=== PATIENT | male | born 1940 | race Caucasian/White ===

== ENCOUNTER → 2017-05-26 | Outpatient (CLI) | payer MEDICARE, OTHER ==
[~2017-05-26] MED LIST: ALLO100T PO; AMIO200T PO; CALC0.25 PO; CARV6.25 PO; CLON0.1T PO; COLC1CAP3 PO; IPRASOL INH; MECL-62 PO; MILKSUS PO; MONT10TA4 PO; NITR0.4S SL; NORC5TAB PO; PRAV20TA PO; SEVEL800 PO; SODI200S PO; SPIRCAP INH; [UNRECOGNIZED DRUG - CODE] PO
[2017-05-26 12:24] LABS: HEMATOCRIT 35.6 % (39.0-51.0); HEMOGLOBIN 11.4 GM/DL (13.0-17.0); MEAN CELL VOLUME 93.5 FL (80.0-100.0); MEAN CORPUSCULAR HGB CONC 32.1 % (32.0-36.0); MEAN PLATELET VOLUME 8.7 FL (7.0-11.0); PLATELET COUNT 167 TH/MM3 (150-450); RED BLOOD COUNT 3.81 MIL/MM3 (4.50-5.90); RED CELL DISTRIBUTION WIDTH 16.2 % (11.6-17.2); WHITE BLOOD COUNT 6.4 TH/MM3 (4.0-11.0)
[2017-05-26 12:27] LABS: INTERNATIONAL NORMALIZED RATIO 1.1 RATIO; PROTHROMBIN TIME - PATIENT 11.1 SEC (9.8-11.6)
[2017-05-26 12:56] LABS: BICARBONATE 29.9 MEQ/L (21.0-32.0); CREATININE 5.17 MG/DL (0.60-1.30)
--- NOTE | 2017-05-27 12:31 | EKG ---
Date Performed: 05/26/2017 Time Performed: 11:38:09 PTAGE: 76 years EKG: ATRIAL FIBRILLATION WITH ABERRANT CONDUCTION OR VENTRICULAR PREMATURE COMPLEXES INTRAVENTRI CULAR CONDUCTION DELAY ABNORMAL ECG NO PREVIOUS TRACING DOCTOR: Jamal Epstein Interpretating Date/Time 05/27/2017 12:31:03
== END ==
LOC: CPRE 11:20
PROVIDERS: ATTEND Surgery
DX: Z01.810 Encounter for preprocedural cardiovascular examination (principal); Z01.812 Encounter for preprocedural laboratory examination; N18.6 End stage renal disease; R94.31 Abnormal electrocardiogram [ECG] [EKG]
CPT/HCPCS: 36415; 80048; 85027; 85610; 93005

== ENCOUNTER → 2017-05-31 | Day surgery (SDC) | payer MEDICARE, OTHER ==
[~2017-05-31] VITALS: Ht 193 cm; Wt 88.9 kg
[~2017-05-31] MED LIST changes: +CHLORHEXIDINE GLUCONATE 2 % 1 PACK (2 CLOTHS) TOPICAL PRN; +DO NOT ADM ANY ANTICOAGULANT DRUGS PRN; +GLYCOPYRROLATE 1 MG/5 ML SYRINGE IV PUSH ONE; +HEPARIN SODIUM - IV 10,000 UNITS/10 ML VIAL ONE; +HEPARIN-NS/PF INJ 500 ML ONE; +INSULIN HUMAN REGULAR 1,000 UNITS/10 ML VIAL SQ PRN; +KETAMINE HCL 500 MG/5 ML VIAL ONE; +LACTATED RINGER'S 1000 ML IV PRN; +LIDOCAINE HCL 1% PF 30 ML VIAL ONE; +LIDOCAINE HCL 1% PF 5 ML SYRINGE OTHER ONE; +METOPROLOL TARTRATE 25 MG TAB PO PRN; +MIDAZOLAM HCL 2 MG/2 ML VIAL ONE; +PHENYLEPH/NS 1000 MCG/10 ML SYR IV ONE; +PHENYLEPHRINE HCL 10 MG/ML VIAL IV ONE; +POVIDONE IODINE 5% (ANTISEPSIS KIT) 4 APPLICATIONS EACH NARE PRN; +PROPOFOL 200 MG/20 ML AMP IV ONE; +PROTAMINE SULFATE 50 MG/5 ML VIAL ONE; +SODIUM CHLORID 0.9% 500 ML IV PRN; +SODIUM CHLORIDE 0.9% FLUSH 10 ML FLUSH IV FLUSH PRN; +STERILE WATER FOR INJECTION 20 ML VIAL IV ONE; +THROMBIN (TOPICAL) 20,000 UNIT SPRAY KIT ONE; +ceFAZolin INJ 1,000 MG VIAL ONE
--- NOTE | 2017-05-31 11:15 | PD.VS.PN ---
Pre-operative Note Pre-operative diagnosis: ESRD, need for HD access, failed L UE AVF Planned procedure: R brachiobasilic AVF (1st stage) Interval History: Pt has been feeling well; same COPD but stable; kishor HD Sat Labs: Hct 36 plt 167 K 4.2 (repeat pending) INR 1.1 Blood: none needed EKG: no ST changes Imaging: Duplex reviewed - good R basilic vein Orders: NPO Ancef 2g IV OCTOR Post-operative destination: PACU and home today Operative site marked: Yes Consent: Informed consent has been obtained from Ender Corona. I have explained the procedure in detail and discussed the risks, benefits, and potential complications. All questions have been answered. Patient contact information: [phone] Homar Nash MD May 31, 2017 11:15
--- NOTE | 2017-05-31 12:44 | HHI.PR ---
cc: Homar Nash MD Immediate Post Op Note Procedure Date: May 31, 2017 Pre Op Diagnosis: ESRD, need for HD access Post Op Diagnosis: ESRD, need for HD access Surgeon: Homar Nash Recovery Room Nurse(s): Homar Jolly Procedure: R brachiobasilic AVF (1st stage) Findings: 3mm vein, 5mm artery Additional Information: audible bruit after case; + Doppler signal in wrist Complications: none Specimen(s) removed: none Estimated blood loss: 10mL Anesthesia: LMA Drains: None Fluids: 600mL IVF Patient to: PACU Patient Condition: Good Date/Time of Procedure: SEE SURGICAL CARE RECORD Homar Nash MD May 31, 2017 12:44
--- NOTE | 2017-05-31 14:14 | MP ---
cc: Homar Nash MD DATE OF OPERATION: 05/31/2017 PREOPERATIVE DIAGNOSIS: Endstage renal disease, need for dialysis access. POSTOPERATIVE DIAGNOSIS: Endstage renal disease, need for dialysis access. PROCEDURE PERFORMED: Right brachiobasilic arteriovenous fistula (first stage). ATTENDING SURGEON: Homar Nash MD ANESTHESIA: Local with sedation converted to LMA. INDICATION: Mr. Corona is a 76-year-old gentleman with severe COPD and end-stage renal disease. He needs dialysis access. He has a failed left upper extremity access by an outside surgeon. He is taken to the operating room for surgical access creation. DESCRIPTION OF PROCEDURE: Informed consent was obtained. The patient was taken to the operating room and placed supine on the operating table. An appropriate timeout was taken to ensure the patient's identity, the operative site and planned procedure. The administration of 2 grams of Ancef was initiated prior to skin incision and will be discontinued after a single preoperative dose. Everyone in the room agreed with the timeout and we proceeded. His right arm was prepped and draped and locally infiltrated with 1% lidocaine. A #10 blade was used to incise the skin overlying the distal antecubital in the medial aspect of the upper arm, carried down through subcutaneous tissue with electrocautery. Basilic vein was identified and dissected free. Side branches were ligated with 3-0 silk. The vein was marked for orientation and clamped distally with a right angle, transected and the distal limb was oversewn with silk suture. The brachial artery was identified on the medial aspect of the incision, was dissected free for several centimeters. The patient was systemically heparinized with 3000 units of IV heparin, proximal and distal control of the brachial artery obtained with profunda clamps and a longitudinal arteriotomy was made with an 11 blade, extended with Devin scissors. The vein was patched and cut to appropriate length, spatulated and sewn end-to-side with running 6-0 Prolene suture. At the completion of the procedure, found to be hemostatic, there was a nice thrill in the fistula and a Doppler signal present. Heparin was reversed with protamine. The wound was infiltrated with lidocaine, made hemostatic and closed with 2-0 Polysorb, 3-0 Polysorb and 4-0 Monocryl. Sponge and needle counts were correct at the end of the case. I was present, scrubbed, and performed the entire procedure. MD DEBBY Paredes/GE , 01:59 PM , 02:13 PM
[2017-05-31 14:25] VITALS: BP 152/82; PULSE 70; RESP 20; TEMP 97.7; O2SAT 100
== END | disposition home or self-care (01) ==
LOC: HCVO 10:09
PROVIDERS: ATTEND Surgery
DX: N18.6 End stage renal disease (principal); I12.0 Hypertensive chronic kidney disease with stage 5 chronic kidney disease or end stage renal disease; I48.91 Unspecified atrial fibrillation; J44.9 Chronic obstructive pulmonary disease, unspecified; Z99.2 Dependence on renal dialysis
CPT/HCPCS: 01844; 36819; 84132; J0690; J1644; J2250; J2370; J2720; J3010